=== PATIENT | male | born 1990 | race Caucasian/White ===

== ENCOUNTER 2023-02-22 08:18 | Day surgery (SDC) | payer OTHER ==
[~2023-02-22] VITALS: Ht 190.5 cm; Wt 103.0 kg
[2023-02-22] MEDS ORDERED: MULTI VITAMINS1 TAB PO (08:35)
[2023-02-22 08:56] VITALS: BP 121/83; PULSE 55; TEMP 97.2
[2023-02-22 10:00] VITALS: BP 133/65; PULSE 58; TEMP 97.7
--- NOTE | 2023-02-22 10:00 | NUR ---
The patient arrived back to [facility] from the endoscopy suite at this time. The patient appears alert and ambulated from the cart to the recliner in his room with the stand by assistance of two nurses and appeared to tolerate the activity well. Post procedure vital signs were started at this time. The patient agrees to try some coffee and cranberry juice. is going to pick him up when he is ready for discharge.
[2023-02-22 10:15] VITALS: BP 126/76; PULSE 51
--- NOTE | 2023-02-22 10:15 | NUR ---
The patient has spoke with Dr. Parham regarding the findings of the procedure. He appears to be tolerating the coffee and juice well. Vital signs appear stable. Call light is within reach. Denies any further needs.
--- NOTE | 2023-02-22 10:25 | NUR ---
Discharge instructions were reviewed with the patient at this time. He verbalized understanding and has no questions for the nurse at this time. The patient's IV to his right hand was removed and a pressure dressing was applied to the site. The patient was instructed to get dressed and notify the staff when he is ready to be esocrted out.
--- NOTE | 2023-02-22 10:35 | NUR ---
The patient was escorted out via wheelchair to a private vehicle by PIERRE Gutierrez. The patient's belongings and discharge paperwork were sent with him. The patient's is present to drive him home.
== END 2023-02-22 10:35 | disposition home or self-care (01) ==
LOC: SDCO 08:18
DX: K22.70 Barrett's esophagus without dysplasia (principal); Q43.8 Other specified congenital malformations of intestine; K22.89 Other specified disease of esophagus; K31.89 Other diseases of stomach and duodenum; K31.7 Polyp of stomach and duodenum; Z98.890 Other specified postprocedural states; Z87.891 Personal history of nicotine dependence
CPT/HCPCS: J2704; J7120